=== PATIENT | female | born 1960 ===

== ENCOUNTER 2019-02-04 14:22 | Emergency (ER) | payer OTHER ==
[2019-02-04 14:42] VITALS: BP 122/77
--- NOTE | 2019-02-04 14:53 | Emergency Department Report ---
Chief Complaint: Skin Rash Stated Complaint: SKIN INFECTION Time Seen by Provider: 02/04/19 14:40 - HPI History of Present Illness: 59 yo female presents to Ed cc of boils to bilateral legs x 3 weeks ago wAS SEEN BY pcp and was told she had poison maria alejandra and was given antibiotics x 10 days with no relief states getting worse, itching and burning to legs, now spreading to arms states she was supposed to see a log haul operator states appt wasnt for the 18 of January - ROS Review of Systems: Denies all systems - Exam Vital Signs: Vital Signs 02/04/19 14:37 Temperature 98 F Pulse Rate 76 Respiratory 16 Rate Blood Pressure 122/77 O2 Sat by Pulse 98 Oximetry Physical Exam: EXTREMITIES: cellulitic, erthematous, rash localized to bilateral lower legs MSE screening note: Focused history and physical exam performed. Due to findings the following was ordered: ED Medical Decision Making - Medical Decision Making 59 y o female presents for f/u from poison maria alejandra dermatitis discussed log haul operator referral and f/u Discussed to continue taking medication as prescribed by PCP pt taking antibiotics, prednisone and benadryl cream pt understands instructions and will keep appointment with log haul operator VSS, no acute distress ED Disposition for MSE Clinical Impression: Dermatitis, Cellulitis Disposition: DC-01 TO HOME OR SELFCARE Is pt being admited?: No Does the pt Need Aspirin: No Condition: Stable Instructions: Cellulitis (ED) Additional Instructions: follow up with pcp follow up with Medical Office Secretary Referrals: QUOC ABURTO MD [Staff Physician] - 3-5 Days Forms: Accompanied Note, Work/School Release Form(ED) Time of Disposition: 14:49
== END 2019-02-04 14:57 | disposition home or self-care (01) ==
LOC: ED 14:22
DX: L03.116 Cellulitis of left lower limb (principal); L03.115 Cellulitis of right lower limb; L30.9 Dermatitis, unspecified